=== PATIENT | female | born 1990 | race Caucasian/White ===

== ENCOUNTER 2017-11-11 07:16 | Emergency (ER) | payer OTHER ==
[2017-11-11] MEDS ORDERED: Bacitracin Zinc 1 Packet ONE (07:41)
[2017-11-11 08:29] LABS: HIV (1/2) Antibody/Antigen Non-Reactive (NonReactive); HIV 1/2 INDEX 0.08 S/CO (<1.00); Hep C IgG Ab Non-Reactive (NonReactive); Hep C Index 0.09 S/CO (0-0.79)
[2017-11-11 11:59] LABS: HBSAB Concentration 6749.14 mIU/mL; Hep B Surf AB Reactive (NonReactive)
== END 2017-11-11 07:56 | disposition home or self-care (01) ==
LOC: ERS 07:16
DX: S61.031A Puncture wound without foreign body of right thumb without damage to nail, initial encounter (principal); Z79.899 Other long term (current) drug therapy; W26.8XXA Contact with other sharp object(s), not elsewhere classified, initial encounter
CPT/HCPCS: 36415; 86706; 86803; 87389; 99283